=== PATIENT | male | born 1965 | race Hispanic/Latino ===

== ENCOUNTER 2024-04-24 07:46 | Outpatient (RCR) | payer BC | END 2024-05-10 | LOC: RESP 07:46 | PROVIDERS: ATTEND Plastic Surgery Surgery of the Hand | DX: J98.6 Disorders of diaphragm (principal) | CPT/HCPCS: 94799 ==

== ENCOUNTER 2024-05-31 07:50 | Outpatient (RCR) | payer BC | END 2024-06-09 | LOC: RESP 07:50 | PROVIDERS: ATTEND Plastic Surgery Surgery of the Hand | DX: J98.6 Disorders of diaphragm (principal) | CPT/HCPCS: 94626 ×4; G0238 ×4 ==

== ENCOUNTER 2024-06-14 08:04 | Outpatient (RCR) | payer BC | END 2024-07-10 | LOC: RESP 08:04 | DX: J98.6 Disorders of diaphragm (principal) | CPT/HCPCS: 94626 ×2; G0238 ×2 ==

== ENCOUNTER 2024-08-02 07:46 | Outpatient (RCR) | payer BC, OTHER | END 2024-08-10 | LOC: RESP 07:46 | PROVIDERS: ATTEND Plastic Surgery Surgery of the Hand | DX: J98.6 Disorders of diaphragm (principal) | CPT/HCPCS: 94626 ×2; G0238 ×2 ==